=== PATIENT | male | born 1945 | race Caucasian/White ===

== ENCOUNTER → 2020-09-18 14:24 | Outpatient (CLI) | payer OTHER, SELFPAY ==
[2020-09-18 13:57] VITALS: BMI 28.7
[2020-09-18 16:06] LABS: BNP,B-Type NATRIURETIC PEPTIDE 759.9 pg/mL (0-100)
== END ==
PROVIDERS: PCP Internal Medicine; Referring Provider Internal Medicine; Visit Provider Internal Medicine
DX: R06.02 Shortness of breath (principal)
CPT/HCPCS: 36415; 83880

== ENCOUNTER → 2020-09-23 09:42 | Outpatient (CLI) | payer OTHER, MEDICARE, SELFPAY ==
[2020-09-18 13:57] VITALS: BMI 28.7
--- NOTE | 2020-09-23 09:48 | ECHOCS_ITS ---
Reason For Study: Dyspnea/SOB Procedure This was a 2D Doppler, Color Flow transthoracic echocardiogram. The study was technically difficult. Contrast injection was performed. Exam performed in department. Left Ventricle Normal LV size. Left ventricular systolic function is normal. The estimated ejection fraction is 55 %. Stage 3 diastolic dysfunction. No regional wall motion abnormalities noted. Right Ventricle Normal RV size. Normal systolic function. Atria The left atrium is mildly enlarged. Normal right atrium. Mitral Valve Normal mitral valve. Tricuspid Valve Normal tricuspid valve. Mild (1+) tricuspid valve insufficiency. Pulmonary artery systolic pressure is 40 mmHg. Aortic Valve Trisinus/trileaflet aortic valve. Pulmonic Valve Normal pulmonic valve. Great Vessels Normal aortic root. The pulmonary artery is normal size. Normal inferior vena cava. Pericardium/Pleural No pericardial effusion. Medication 22 gauge I.V. with prn adaptor inserted into right arm. Diluted definity 2ml given slow IV push to enhance endocardial definition. MMode/2D Measurements & Calculations LVIDd: 4.8 cm IVSd: 1.2 cm Ao root diam: 3.3 cm LVIDs: 2.8 cm LVPWd: 0.98 cm LA dimension: 4.3 cm FS: 41.9 % LAV(MOD-bp): 71.7 ml LA A4 area: 22.9 cm2 RA A4 area: 19.9 cm2 LAV(MOD-bp) Indexed: 33.6 ml/m2 LAV(MOD-sp2): 68.6 ml LAV(MOD-sp4): 74.6 ml Time Measurements MV dec time: 0.14 sec Doppler Measurements & Calculations MV E max justin: 130.9 cm/sec Lat Peak E' Justin: 13.5 cm/sec Med Peak E' Justin: 9.5 cm/sec MV A max justin: 30.4 cm/sec E/E' lat: 9.7 E/E' med: 13.8 MV E/A: 4.3 MV V2 max: 127.5 cm/sec MV P1/2t max justin: 126.8 cm/sec Ao V2 max: 95.3 cm/sec MV max P.5 mmHg MV P1/2t: 78.7 msec Ao max P.6 mmHg MV V2 mean: 56.9 cm/sec MV dec slope: 471.9 cm/sec2 MV mean P.8 mmHg MV V2 VTI: 31.2 cm MVA(P1/2t): 2.8 cm2 LV V1 max: 87.2 cm/sec PA V2 max: 85.4 cm/sec TR max justin: 297.5 cm/sec LV V1 max P.0 mmHg TR max P.4 mmHg Interpretation Summary Normal LV size. Left ventricular systolic function is normal. The estimated ejection fraction is 55 %. Stage 3 diastolic dysfunction. The left atrium is mildly enlarged. Mild (1+) tricuspid valve insufficiency. Contrast injection was performed. Ordering Physician: Emily Roman Referring Physician: Emily Roman Performed By: Richard Wing RCS
== END ==
PROVIDERS: PCP Internal Medicine; Referring Provider Internal Medicine; Visit Provider Internal Medicine
DX: R06.2 Wheezing (principal)
CPT/HCPCS: 93306; Q9957; A4216; C8929

== ENCOUNTER → 2020-10-02 14:43 | Outpatient (CLI) | payer OTHER, MEDICARE, SELFPAY ==
[2020-10-02 16:57] LABS: Absolute Lymphocyte Count 1.53 X10^3/uL (0.83-4.51); Absolute Neutrophil Count 4.2 X10^3/uL (2.0-7.7); Basophil# 0.04 X10^3/uL; Basophil% 0.6 % (0-1); Eosinophil# 0.14 X10^3/uL; Eosinophils% 2.1 % (0-5); Hematocrit 48.9 % (40-54); Hemoglobin 15.7 g/dL (13.0-16.5); Lymphocyte # 1.53 X10^3/ul (4.0); Lymphocyte % 23.2 % (19-41); Mean Corp Hgb Conc 32.1 g/dL (32-36); Mean Corpuscular Hgb 29.8 pg (27.0-32.0); Mean Corpuscular Volume 92.8 fL (80-94); Mean Platelet Vol. 10.8 fl (6.2-12.0); Monocyte# 0.62 X10^3/uL; Monocyte% 9.4 % (0-10); NRBC Flagged by Analyzer 0 % (0-5); Neutrophil # 4.22 X10^3/uL (2.7-7.7); Neutrophil % 63.9 % (47-70); Platelet Count 168 K/mm3 (150-450); RBC Distribution Width SD 44.1 fl (35.1-43.9); Red Blood Count 5.27 M/mm3 (4.6-6.2); White Blood Count 6.6 K/mm3 (4.4-11.0)
[2020-10-02 17:05] LABS: AST(SGOT) 22 U/L (15-37); Alanine Aminotransfer ALT/SGPT 32 U/L (16-61); Albumin, Serum 3.8 g/dL (3.2-5.0); Alkaline Phosphatase 54 U/L (45-117); Anion Gap 3 (5-15); BUN 42 mg/dL (7-18); BUN/Creat Ratio 26.1 RATIO (10-20); Calcium,Total 9.9 mg/dL (8.5-10.1); Chloride 103 mmol/L (98-107); Creatinine, Serum 1.61 mg/dL (0.70-1.30); EST Glomerular Filtration Rate 45 mL/min (>60); Est Glom Filt Rate - Afr Amer 54 mL/min (>60); Glucose 137 mg/dL (74-106); Protein, Total 7.8 g/dL (6.4-8.2); Sodium Level 139 mmol/L (136-145)
[2020-10-02 17:14] LABS: Microalbumin,Random Urine 90.9 mg/L (NO RANGE EST.)
[2020-10-02 17:23] LABS: Hemoglobin A1c 6.5 % (3.8-5.6)
== END ==
PROVIDERS: PCP Internal Medicine; Referring Provider Internal Medicine; Visit Provider Internal Medicine
DX: E11.9 Type 2 diabetes mellitus without complications (principal); I50.9 Heart failure, unspecified
CPT/HCPCS: 36415; 80053; 82043; 82570; 83036; 85025

== ENCOUNTER → 2020-10-30 08:10 | Outpatient (CLI) | payer MEDICARE, SELFPAY ==
[2020-10-23 08:59] VITALS: BMI 28.0
== END ==
PROVIDERS: PCP Internal Medicine; Referring Provider Internal Medicine Cardiovascular Disease; Visit Provider Internal Medicine Cardiovascular Disease
DX: I48.0 Paroxysmal atrial fibrillation (principal); R00.1 Bradycardia, unspecified
CPT/HCPCS: 93225; 93226

== ENCOUNTER 2020-12-19 13:39 | Outpatient (RCR) | payer MEDICARE, SELFPAY ==
[2020-12-17 15:55] VITALS: BMI 28.8
[2020-12-19] MEDS: COVID-19 VACC, MRNA(PFIZER)/PF 30 MCG/0.3 ML SYRINGE IM (09:01)
[2021-01-09] MEDS: COVID-19 VACC, MRNA(PFIZER)/PF 30 MCG/0.3 ML SYRINGE IM (08:45)
== END 2020-12-19 23:59 ==
LOC: IMMUN 13:39
PROVIDERS: PCP Internal Medicine; Visit Provider Family Medicine
DX: Z23 Encounter for immunization (principal)
CPT/HCPCS: 0001A; 0002A

== ENCOUNTER → 2021-02-19 08:58 | Outpatient (CLI) | payer MEDICARE, SELFPAY ==
[2021-02-19 08:25] VITALS: BMI 28.8
[2021-02-19 13:02] LABS: Anion Gap 4 (5-15); BUN 42 mg/dL (7-18); BUN/Creat Ratio 26.4 RATIO (10-20); Calcium,Total 9.2 mg/dL (8.5-10.1); Chloride 108 mmol/L (98-107); Creatinine, Serum 1.59 mg/dL (0.70-1.30); EST Glomerular Filtration Rate 45 mL/min (>60); Est Glom Filt Rate - Afr Amer 55 mL/min (>60); Glucose 150 mg/dL (74-106); Potassium 4.1 mmol/L (3.5-5.1); Sodium Level 142 mmol/L (136-145)
[2021-02-19 13:09] LABS: BNP,B-Type NATRIURETIC PEPTIDE 246.1 pg/mL (0-100)
--- NOTE | 2021-02-19 13:39 | RAD_ITS ---
INDICATION: Cough, Shortness of breath EXAMINATION/TECHNIQUE: X-RAY - XR Chest 2 Views COMPARISON: None. FINDINGS: The lungs are clear. Tortuous and calcified thoracic aorta. The heart is not enlarged. No pleural effusion or pneumothorax. No acute osseous abnormalities. RAD/Chest PA and Lateral IMPRESSION: No acute radiographic abnormalities. Electronically Signed: Dakota Paul MD at 20:24 EDT Tel , Service support ,
== END ==
PROVIDERS: PCP Internal Medicine; Referring Provider Internal Medicine; Visit Provider Internal Medicine
DX: R06.02 Shortness of breath (principal); R05 Cough; I11.0 Hypertensive heart disease with heart failure; I50.32 Chronic diastolic (congestive) heart failure
CPT/HCPCS: 36415; 71046; 80048; 83880

== ENCOUNTER → 2021-03-05 15:47 | Outpatient (CLI) | payer MEDICARE, SELFPAY ==
[2021-03-05 15:19] VITALS: BMI 28.8
[2021-03-05 18:05] LABS: Anion Gap 8 (5-15); BUN 60 mg/dL (7-18); BUN/Creat Ratio 31.4 RATIO (10-20); Calcium,Total 8.9 mg/dL (8.5-10.1); Chloride 97 mmol/L (98-107); Creatinine, Serum 1.91 mg/dL (0.70-1.30); EST Glomerular Filtration Rate 37 mL/min (>60); Est Glom Filt Rate - Afr Amer 44 mL/min (>60); Glucose 321 mg/dL (74-106); Potassium 4.5 mmol/L (3.5-5.1); Sodium Level 134 mmol/L (136-145)
== END ==
PROVIDERS: PCP Internal Medicine; Referring Provider Physician Assistant; Visit Provider Physician Assistant
DX: I10 Essential (primary) hypertension (principal)
CPT/HCPCS: 36415; 80048

== ENCOUNTER → 2021-04-15 14:37 | Outpatient (CLI) | payer MEDICARE, SELFPAY ==
[2021-03-05 15:19] VITALS: BMI 28.8
[2021-04-15 15:47] LABS: Anion Gap 8 (5-15); BUN 45 mg/dL (7-18); BUN/Creat Ratio 21.1 RATIO (10-20); Chloride 102 mmol/L (98-107); Creatinine, Serum 2.13 mg/dL (0.70-1.30); EST Glomerular Filtration Rate 32 mL/min (>60); Est Glom Filt Rate - Afr Amer 39 mL/min (>60); Glucose 189 mg/dL (74-106); Potassium 4.1 mmol/L (3.5-5.1); Sodium Level 140 mmol/L (136-145)
== END ==
PROVIDERS: PCP Internal Medicine; Referring Provider Internal Medicine Cardiovascular Disease; Visit Provider Internal Medicine Cardiovascular Disease
DX: E11.9 Type 2 diabetes mellitus without complications (principal); I27.21 Secondary pulmonary arterial hypertension; I50.32 Chronic diastolic (congestive) heart failure; I51.9 Heart disease, unspecified; N28.9 Disorder of kidney and ureter, unspecified; R06.02 Shortness of breath
CPT/HCPCS: 36415; 80048

== ENCOUNTER → 2021-05-16 07:32 | Outpatient (CLI) | payer MEDICARE, SELFPAY ==
[2021-05-02 13:49] VITALS: BMI 28.0
[2021-05-16 08:15] LABS: Anion Gap 5 (5-15); BUN 31 mg/dL (7-18); BUN/Creat Ratio 20.9 RATIO (10-20); Calcium,Total 9.3 mg/dL (8.5-10.1); Chloride 109 mmol/L (98-107); Creatinine, Serum 1.48 mg/dL (0.70-1.30); EST Glomerular Filtration Rate 49 mL/min (>60); Est Glom Filt Rate - Afr Amer 59 mL/min (>60); Glucose 151 mg/dL (74-106); Sodium Level 141 mmol/L (136-145)
== END ==
PROVIDERS: PCP Internal Medicine; Referring Provider Physician Assistant Medical; Visit Provider Physician Assistant Medical
DX: I11.0 Hypertensive heart disease with heart failure (principal); I50.32 Chronic diastolic (congestive) heart failure; I48.0 Paroxysmal atrial fibrillation; E78.5 Hyperlipidemia, unspecified
CPT/HCPCS: 36415; 80048

== ENCOUNTER → 2021-10-03 15:04 | Outpatient (CLI) | payer MEDICARE, SELFPAY ==
--- NOTE | 2021-10-03 15:23 | RAD_ITS ---
STUDY: XR Chest 2 Views 10/03/2021 3:34 PM REASON FOR EXAM: Male, 75 years old. Technologist Notes Cough for a few days, chest congestion, shortness of breath. History of congestive heart failure. cough, sob, CHF COMPARISON: 02/19/2021 TECHNIQUE: XR Chest 2 Views FINDINGS: There is no demonstrated pleural abnormality. There are flowing osteophytes of the thoracic spine which can be seen in DISH. Enlarged heart size. Normal mediastinum. Normal adelina. Prominent appearing increased interstitial lung markings. Normal visualized pulmonary arteries. There is atherosclerotic calcification of the aortic arch with tortuosity. There are diffuse degenerative changes of the visualized thoracic spine. There is degenerative osteoarthritis of the bilateral shoulders. There is no demonstrated abnormality of the visualized soft tissue structures of the upper abdomen. RAD/Chest PA and Lateral IMPRESSION: There are no acute findings. Electronically Signed: Stanislav Gomez MD at 16:26 EST , Service support ,
[2021-10-03 16:33] LABS: BNP,B-Type NATRIURETIC PEPTIDE 280.8 pg/mL (0-100)
[2021-10-03 16:35] LABS: Anion Gap 5 (5-15); BUN 34 mg/dL (7-18); BUN/Creat Ratio 21.7 RATIO (10-20); Calcium,Total 9.4 mg/dL (8.5-10.1); Chloride 104 mmol/L (98-107); Creatinine, Serum 1.57 mg/dL (0.70-1.30); EST Glomerular Filtration Rate 46 mL/min (>60); Est Glom Filt Rate - Afr Amer 55 mL/min (>60); Glucose 115 mg/dL (74-106); Sodium Level 139 mmol/L (136-145)
== END ==
PROVIDERS: PCP Internal Medicine; Referring Provider Physician Assistant; Visit Provider Physician Assistant
DX: R06.02 Shortness of breath (principal); R05.9 Cough, unspecified; R60.9 Edema, unspecified; I50.32 Chronic diastolic (congestive) heart failure
CPT/HCPCS: 36415; 71046; 80048; 83880

== ENCOUNTER 2021-10-20 13:03 | Outpatient (CLI) | payer MEDICARE, SELFPAY ==
[2021-10-20 15:06] LABS: Absolute Lymphocyte Count 1.82 X10^3/uL (0.83-4.51); Absolute Neutrophil Count 4.9 X10^3/uL (2.0-7.7); Basophil# 0.06 X10^3/uL; Basophil% 0.8 % (0-1); Eosinophil# 0.27 X10^3/uL; Eosinophils% 3.5 % (0-5); Hematocrit 43.9 % (40-54); Hemoglobin 14.2 g/dL (13.0-16.5); Lymphocyte # 1.82 X10^3/ul (0.83-4.51); Lymphocyte % 23.7 % (19-41); Mean Corp Hgb Conc 32.3 g/dL (32-36); Mean Corpuscular Hgb 29.9 pg (27.0-32.0); Mean Corpuscular Volume 92.4 fL (80-94); Mean Platelet Vol. 10.6 fl (6.2-12.0); Monocyte# 0.55 X10^3/uL; Monocyte% 7.2 % (0-10); NRBC Flagged by Analyzer 0 % (0-5); Neutrophil # 4.91 X10^3/uL (2.7-7.7); Platelet Count 178 K/mm3 (150-450); RBC Distribution Width CV 13.2 % (11.6-14.6); RBC Distribution Width SD 45.1 fl (35.1-43.9); Red Blood Count 4.75 M/mm3 (4.6-6.2); White Blood Count 7.7 K/mm3 (4.4-11.0)
[2021-10-20 15:21] LABS: ALB/GLOB Ratio 0.8 RATIO (0.9-2.4); AST(SGOT) 16 U/L (15-37); Alanine Aminotransfer ALT/SGPT 22 U/L (16-61); Albumin, Serum 3.4 g/dL (3.2-5.0); Alkaline Phosphatase 46 U/L (45-117); Anion Gap 4 (5-15); BUN 37 mg/dL (7-18); Calcium,Total 9.2 mg/dL (8.5-10.1); Chloride 105 mmol/L (98-107); Cholesterol 137 mg/dL (200); Creatinine, Serum 1.68 mg/dL (0.70-1.30); EST Glomerular Filtration Rate 42 mL/min (>60); Est Glom Filt Rate - Afr Amer 51 mL/min (>60); Globulin 4.3 g/dL (2.2-4.2); Glucose 160 mg/dL (74-106); High Density Lipoprotein 44 mg/dL; PSA,Total- Diagnostic 3.62 ng/mL (0.0-4.0); Potassium 4.5 mmol/L (3.5-5.1); Protein, Total 7.7 g/dL (6.4-8.2); Sodium Level 140 mmol/L (136-145); Triglycerides 99 mg/dL; Very Low Density Lipoprotein 20 mg/dL (5-40)
== END 2021-10-20 23:59 | disposition home or self-care (01) ==
LOC: BIMLAB 13:04
PROVIDERS: PCP Internal Medicine; Referring Provider Physician Assistant; Visit Provider Physician Assistant
DX: I10 Essential (primary) hypertension (principal); E78.5 Hyperlipidemia, unspecified; N40.0 Benign prostatic hyperplasia without lower urinary tract symptoms
CPT/HCPCS: 36415; 80053; 80061; 84153; 85025

== ENCOUNTER → 2022-03-18 | Outpatient (CLI) | payer MEDICARE, SELFPAY ==
[2022-03-18 15:31] LABS: Anion Gap 5 (5-15); BUN 37 mg/dL (7-18); BUN/Creat Ratio 18.8 RATIO (10-20); Calcium,Total 9.4 mg/dL (8.5-10.1); Chloride 106 mmol/L (98-107); Creatinine, Serum 1.97 mg/dL (0.70-1.30); EST Glomerular Filtration Rate 35 mL/min (>60); Est Glom Filt Rate - Afr Amer 43 mL/min (>60); Glucose 171 mg/dL (74-106); Potassium 3.7 mmol/L (3.5-5.1); Sodium Level 145 mmol/L (136-145)
[2022-03-18 15:43] LABS: Hemoglobin A1c 6.8 % (3.8-5.6)
== END | disposition home or self-care (01) ==
LOC: BIMLAB 14:32
PROVIDERS: PCP Internal Medicine; Visit Provider Internal Medicine
DX: I10 Essential (primary) hypertension (principal); E11.69 Type 2 diabetes mellitus with other specified complication
CPT/HCPCS: 36415; 80048; 83036

== ENCOUNTER → 2022-04-24 | Outpatient (CLI) | payer MEDICARE, SELFPAY ==
[2022-04-24 12:01] LABS: Anion Gap 1 (5-15); BUN 30 mg/dL (7-18); BUN/Creat Ratio 18.6 RATIO (10-20); Calcium,Total 9.6 mg/dL (8.5-10.1); Chloride 107 mmol/L (98-107); Creatinine, Serum 1.61 mg/dL (0.70-1.30); EST Glomerular Filtration Rate 44 mL/min (>60); Est Glom Filt Rate - Afr Amer 54 mL/min (>60); Glucose 163 mg/dL (74-106); Potassium 4.7 mmol/L (3.5-5.1); Sodium Level 139 mmol/L (136-145)
== END | disposition home or self-care (01) ==
LOC: BIMLAB 10:52
PROVIDERS: PCP Internal Medicine; Referring Provider Internal Medicine; Visit Provider Internal Medicine
DX: N18.30 Chronic kidney disease, stage 3 unspecified (principal)
CPT/HCPCS: 36415; 80048

== ENCOUNTER → 2022-09-28 | Outpatient (CLI) | payer MEDICARE, SELFPAY ==
[2022-09-28 15:08] LABS: Absolute Lymphocyte Count 1.46 X10^3/uL (0.83-4.51); Absolute Neutrophil Count 3.8 X10^3/uL (2.0-7.7); Basophil# 0.08 X10^3/uL; Basophil% 1.3 % (0-1); Eosinophil# 0.12 X10^3/uL; Hematocrit 41.8 % (40-54); Hemoglobin 13.5 g/dL (13.0-16.5); Lymphocyte # 1.46 X10^3/ul (0.83-4.51); Lymphocyte % 24.5 % (19-41); Mean Corp Hgb Conc 32.3 g/dL (32-36); Mean Corpuscular Hgb 30.4 pg (27.0-32.0); Mean Corpuscular Volume 94.1 fL (80-94); Mean Platelet Vol. 10.7 fl (6.2-12.0); Monocyte# 0.47 X10^3/uL; Monocyte% 7.9 % (0-10); NRBC Flagged by Analyzer 0 % (0-5); Neutrophil # 3.79 X10^3/uL (2.7-7.7); Neutrophil % 63.6 % (47-70); Platelet Count 164 K/mm3 (150-450); RBC Distribution Width CV 13.6 % (11.6-14.6); RBC Distribution Width SD 46.8 fl (35.1-43.9); Red Blood Count 4.44 M/mm3 (4.6-6.2)
[2022-09-28 15:21] LABS: ALB/GLOB Ratio 0.9 RATIO (0.9-2.4); AST(SGOT) 15 U/L (15-37); Alanine Aminotransfer ALT/SGPT 22 U/L (16-61); Albumin, Serum 3.5 g/dL (3.2-5.0); Alkaline Phosphatase 46 U/L (45-117); Anion Gap 4 (5-15); BUN 38 mg/dL (7-18); BUN/Creat Ratio 20.2 RATIO (10-20); Calcium,Total 9.5 mg/dL (8.5-10.1); Chloride 106 mmol/L (98-107); Cholesterol 130 mg/dL (200); Creatinine, Serum 1.88 mg/dL (0.70-1.30); EST Glomerular Filtration Rate 37 mL/min (>60); Est Glom Filt Rate - Afr Amer 45 mL/min (>60); Globulin 3.9 g/dL (2.2-4.2); Glucose 118 mg/dL (74-106); High Density Lipoprotein 39 mg/dL; PSA,Total - Annual Screen 2.03 ng/mL (0.00-4.00); Potassium 4.5 mmol/L (3.5-5.1); Protein, Total 7.4 g/dL (6.4-8.2); Sodium Level 141 mmol/L (136-145); Triglycerides 117 mg/dL; Very Low Density Lipoprotein 23 mg/dL (5-40)
[2022-09-28 15:26] LABS: Hemoglobin A1c 6.5 % (3.8-5.6)
== END | disposition home or self-care (01) ==
LOC: BIMLAB 13:36
PROVIDERS: PCP Internal Medicine; Referring Provider Internal Medicine; Visit Provider Internal Medicine
DX: E11.69 Type 2 diabetes mellitus with other specified complication (principal); R06.02 Shortness of breath; I10 Essential (primary) hypertension; N40.0 Benign prostatic hyperplasia without lower urinary tract symptoms
CPT/HCPCS: 36415; 80053; 80061; 83036; 84153; 85025; G0103

== ENCOUNTER → 2023-03-16 | Outpatient (CLI) | payer MEDICARE, SELFPAY ==
[2023-03-16 17:07] LABS: Anion Gap 7 (5-15); BUN 41 mg/dL (7-18); Calcium,Total 9.4 mg/dL (8.5-10.1); Chloride 107 mmol/L (98-107); Creatinine, Serum 1.95 mg/dL (0.70-1.30); EST Glomerular Filtration Rate 35 mL/min (>60); Est Glom Filt Rate - Afr Amer 43 mL/min (>60); Glucose 93 mg/dL (74-106); Potassium 4.3 mmol/L (3.5-5.1); Sodium Level 141 mmol/L (136-145)
[2023-03-16 17:18] LABS: Hemoglobin A1c 6.8 % (3.8-5.6)
[2023-03-16 17:19] LABS: Microalbumin:Creatinine Ratio 108.8 mg/g CRE (<30 mg/g CRE)
== END | disposition home or self-care (01) ==
LOC: BIMLAB 14:42
PROVIDERS: PCP Internal Medicine; Referring Provider Internal Medicine; Visit Provider Internal Medicine
DX: E11.69 Type 2 diabetes mellitus with other specified complication (principal)
CPT/HCPCS: 36415; 80048; 82043; 82570; 83036

== ENCOUNTER → 2023-09-20 | Outpatient (CLI) | payer MEDICARE, SELFPAY ==
[2023-09-20 15:46] LABS: Absolute Lymphocyte Count 1.61 X10^3/uL (0.83-4.51); Basophil# 0.07 X10^3/uL; Basophil% 1.1 % (0-1); Eosinophil# 0.12 X10^3/uL; Eosinophils% 1.9 % (0-5); Hematocrit 41.7 % (40-54); Hemoglobin 12.8 g/dL (13.0-16.5); Lymphocyte # 1.61 X10^3/ul (0.83-4.51); Mean Corp Hgb Conc 30.7 g/dL (32-36); Mean Corpuscular Hgb 28.9 pg (27.0-32.0); Mean Corpuscular Volume 94.1 fL (80-94); Mean Platelet Vol. 10.6 fl (6.2-12.0); Monocyte# 0.63 X10^3/uL; Monocyte% 9.8 % (0-10); NRBC Flagged by Analyzer 0 % (0-5); Neutrophil # 3.97 X10^3/uL (2.7-7.7); Neutrophil % 61.7 % (47-70); Platelet Count 189 K/mm3 (150-450); RBC Distribution Width CV 13.9 % (11.6-14.6); RBC Distribution Width SD 48.3 fl (35.1-43.9); Red Blood Count 4.43 M/mm3 (4.6-6.2); White Blood Count 6.4 K/mm3 (4.4-11.0)
[2023-09-20 16:47] LABS: ALB/GLOB Ratio 0.9 RATIO (0.9-2.4); AST(SGOT) 20 U/L (15-37); Alanine Aminotransfer ALT/SGPT 19 U/L (16-61); Albumin, Serum 3.6 g/dL (3.2-5.0); Alkaline Phosphatase 52 U/L (45-117); Anion Gap 8 (5-15); BUN 51 mg/dL (7-18); BUN/Creat Ratio 26.3 RATIO (10-20); Calcium,Total 8.7 mg/dL (8.5-10.1); Chloride 107 mmol/L (98-107); Cholesterol 122 mg/dL (200); Creatinine, Serum 1.94 mg/dL (0.70-1.30); EST Glomerular Filtration Rate 36 mL/min (>60); Est Glom Filt Rate - Afr Amer 43 mL/min (>60); Globulin 4.2 g/dL (2.2-4.2); Glucose 124 mg/dL (74-106); High Density Lipoprotein 49 mg/dL; PSA,Total- Diagnostic 2.99 ng/mL (0.0-4.0); Potassium 4.1 mmol/L (3.5-5.1); Protein, Total 7.8 g/dL (6.4-8.2); Sodium Level 141 mmol/L (136-145); Triglycerides 55 mg/dL; Very Low Density Lipoprotein 11 mg/dL (5-40)
== END | disposition home or self-care (01) ==
LOC: BIMLAB 14:22
PROVIDERS: PCP Internal Medicine; Referring Provider Internal Medicine; Visit Provider Internal Medicine
DX: R06.02 Shortness of breath (principal); E11.69 Type 2 diabetes mellitus with other specified complication; N40.0 Benign prostatic hyperplasia without lower urinary tract symptoms
CPT/HCPCS: 36415; 80053; 80061; 84153; 85025

== ENCOUNTER → 2024-03-20 | Outpatient (CLI) | payer MEDICARE, SELFPAY | END | disposition home or self-care (01) | PROVIDERS: PCP Internal Medicine; Referring Provider Nurse Practitioner Gerontology; Visit Provider Nurse Practitioner Gerontology | DX: I48.0 Paroxysmal atrial fibrillation (principal); I50.32 Chronic diastolic (congestive) heart failure | CPT/HCPCS: 93225; 93226 ==

== ENCOUNTER → 2024-03-27 | Outpatient (CLI) | payer MEDICARE, SELFPAY ==
--- NOTE | 2024-03-27 14:44 | RAD_ITS ---
STUDY: X-RAY CHEST REASON FOR EXAM: Male, 78 years old. For Micra VR implant. TECHNIQUE: Frontal and lateral views of the chest. COMPARISON: October 03, 2021 FINDINGS: Stable mild hyperinflation. Mild diffuse interstitial prominence in the bases, unchanged. There is no demonstrated pleural abnormality. Stable cardiomegaly. Normal mediastinum and adelina. Normal visualized pulmonary arteries. Aortic tortuosity with calcification unchanged. Thoracic osteopenia with mild diffuse spondylosis, unchanged. Mild arthrosis of both glenohumeral joints, unaltered. Is no abnormality of the visualized soft tissue structures of the upper abdomen. RAD/Chest PA and Lateral IMPRESSION: Stable chest with no acute or active cardiopulmonary disease. Electronically Signed: Ritesh Hirsch MD at 9:56 EDT ,
[2024-03-27 15:10] LABS: Bacteria 0 SEEN /hpf (None Seen); Mucous, Urine 0 SEEN /hpf (<or=2+); Red Blood Cells-Urine 0 SEEN /hpf (0-5); Squamous Epithelial Cells - UA 0 SEEN /hpf (0-5); White Blood Cells 0 SEEN /hpf (0-5)
[2024-03-27 15:54] LABS: Color, Urine Yellow (Yellow); Glucose, Dipstick Normal (Normal); Hematocrit 42.5 % (40-54); Hemoglobin 13.3 g/dL (13.0-16.5); Ketone-Dipstick Negative (Negative); Leukocyte Esterase-Dipstick Negative /ul (Negative); Mean Corp Hgb Conc 31.3 g/dL (32-36); Mean Corpuscular Hgb 29.8 pg (27.0-32.0); Mean Corpuscular Volume 95.1 fL (80-94); Mean Platelet Vol. 10.8 fl (6.2-12.0); Nitrite-Dipstick Negative (Negative); Occult Blood-Urine Negative /ul (Negative); Platelet Count 129 K/mm3 (150-450); Protein-Dipstick Negative (Negative); RBC Distribution Width CV 14.4 % (11.6-14.6); RBC Distribution Width SD 50.5 fl (35.1-43.9); Red Blood Count 4.47 M/mm3 (4.6-6.2); Urine Bilirubin Dipstick Negative (Negative); Urine Clarity Clear (Clear); Urine Urobilinogen Normal (Normal); White Blood Count 5.5 K/mm3 (4.4-11.0)
[2024-03-27 16:02] LABS: Anion Gap 5 (5-15); BUN 40 mg/dL (7-18); BUN/Creat Ratio 21.3 RATIO (10-20); Calcium,Total 9.9 mg/dL (8.5-10.1); Chloride 107 mmol/L (98-107); Creatinine, Serum 1.88 mg/dL (0.70-1.30); EST Glomerular Filtration Rate 37 mL/min (>60); Est Glom Filt Rate - Afr Amer 45 mL/min (>60); Glucose 130 mg/dL (74-106); Potassium 4.2 mmol/L (3.5-5.1); Sodium Level 141 mmol/L (136-145)
[2024-03-27 16:26] LABS: International Normalized Ratio 1.3; Prothrombin Time (Protime)PT. 16.3 SECONDS (11.7-14.9)
== END | disposition home or self-care (01) ==
PROVIDERS: PCP Internal Medicine; Referring Provider Internal Medicine Cardiovascular Disease; Visit Provider Internal Medicine Cardiovascular Disease
DX: I49.8 Other specified cardiac arrhythmias (principal); I44.2 Atrioventricular block, complete; I48.92 Unspecified atrial flutter
CPT/HCPCS: 71046; 80048; 81001; 85027; 85610

== ENCOUNTER 2024-04-03 14:11 | Observation (INO) | payer MEDICARE, SELFPAY ==
[2024-04-03] VITALS (7 sets, daily range): BP systolic 135–151; BP diastolic 65–79; PULSE 60–65; RESP 14–16; TEMP 36.6–37.1; O2SAT 94–97; BMI 28.0
--- NOTE | 2024-04-03 13:56 | CL.IE_ITS ---
Patient: LG ARIZMENDI Study Date: 04/03/2024 Performing: Josr Richardson MD : 1945 Age: 78 Gender: male PROCEDURES PERFORMED [id number])INITIAL PACER INSERT+VENTRICULAR LEAD INDICATIONS Atrial fibrillation and complete heart block PROCEDURE DETAILS The patient was brought to the Catheterization Lab in the postabsorptive nonsedated state. Informed consent was obtained prior to the procedure. Local anesthetic was given subcutaneously to the left upper chest area with Lidocaine 2%. Access was achieved and a guidewire was advanced into the left subclavian vein. Incision was made to the left subclavicular area. A peel-away sheath was inserted into the left subclavian vein. PPM ventricular lead was inserted / positioned to right ventricular apex. PPM ventricular lead testing performed. PPM ventricular lead testing performed. The Ventricular PM lead sutured in place with 2-0 Silk. Device pocket was irrigated with antibiotic, Ancef 1gm.. PPM generator was attached to the lead(s) and inserted into the pocket. PPM generator was then interrogated by the programmer or analyst. Subcutaneous closure was completed with 3-0 Vicryl. Skin closure was completed with 4-0 Vicryl. Steri-strips applied to Lt chest area. The patient tolerated the procedure well. Estimated Blood Loss: 10 ml's IMPLANTED / EX-PLANTED DEVICES IMPLANTED DEVICE(S): PPM Generator - Cinder Crew Worker: [employer]rak[employer], Model # [id number] , Serial # [id number] PPM Ventricular lead - Cinder Crew Worker: [employer]rakash, Model # [id number] , Serial # [id number] DEVICE PARAMETERS VENTRICULAR LEAD PARAMETERS: R wave- 4.8 (mV) threshold- 0.75 (V) impedence- 630 (OHMS) DEVICE PARAMETERS: Mode- VVIR Lower rate- 60 Upper rate- 130 CONCLUSIONS / RECOMMENDATIONS Device Conclusions: Successful implantation of a single chamber pacemaker Device Recommendations: Follow up with Primary Care Physician PROCEDURE MEDICATIONS Fentanyl 50 mcg IV Versed 1 mg IV Versed 1 mg IV Oxygen: 2 L/min via nasal cannula Ancef 2 Gm IV @ 04/03/2024 12:58:50 Signed By Josr Richardson MD On 04/03/2024 13:55:31 Josr Richardson MD
[2024-04-03] MEDS: Furosemide 40 MG Tablet PO (18:26)
[2024-04-03] MEDS: Tamsulosin HCl 0.4 MG Capsule PO (18:26)
[2024-04-03] MEDS: Acetaminophen 325 MG Tablet PO (23:21)
[2024-04-04 02:00] VITALS: BP 148/70; PULSE 60; RESP 18; TEMP 36.6; O2SAT 95
--- NOTE | 2024-04-04 05:55 | RAD_ITS ---
INDICATION: Post permanant ICD/Pacemaker -- inspiration/expiration. Arms Down. Wet read to MD EXAMINATION/TECHNIQUE: X-RAY - XR Chest 3 Views COMPARISON: No relevant prior comparison study available FINDINGS: LINES/DEVICES: Pacemaker is seen on the left side. LUNGS: No consolidation, edema or effusion. No pneumothorax. MEDIASTINUM AND CARDIOVASCULAR STRUCTURES: Moderate cardiomegaly. BONES AND SOFT TISSUES: Unremarkable. RAD/Chest 3 View IMPRESSION: Moderate cardiomegaly. Electronically Signed: Sam Diamond MD at 5:51 EDT ,
[2024-04-04 08:23] VITALS: BP 135/69; PULSE 60; RESP 14; TEMP 36.6; O2SAT 96
--- NOTE | 2024-04-04 08:53 | PN.CARD_ITS ---
Subjective Subjective Patient seen and evaluated. Objective Data Vital Signs: Vital Signs Temp Pulse Resp BP Pulse Ox O2 Del Method 98 F 60 14 135/69 H 96 Room Air 04/04/24 08:23 04/04/24 08:23 04/04/24 08:23 04/04/24 08:23 04/04/24 08:23 04/04/24 08:29 Oxygen Delivery Method Room Air Weight: 201 lb Body Mass Index (BMI) 28.0 Intake & Output: Intake and Output for Last 24 Hours 04/02/24 04/03/24 04/04/24 23:59 23:59 23:59 Intake Total 520 / 920 520 / 520 Output Total 400 / 1150 1450 / 1450 Balance 120 / -230 -930 / -930 Cardiology Labs/Tests Rhythm: EKG: ECHO: Stress Test: Cardiac Cath: PCI: CT Surgery: Holter monitor: EPS: PPM: CXR: Chest CT Scan: Radiography Diagnostic Testing: Radiology Impression Chest X-Ray 04/04/24 05:55 IMPRESSION: Moderate cardiomegaly. Electronically Signed: Sam Diamond MD at 5:51 EDT , Physical Exam Const alert, oriented x3 and no apparent distress General Appearance: cooperative HEENT hearing grossly normal bilaterally Head and Scalp: atraumatic Eyes EOMs intact bilaterally Neck General: normal visual inspection Chest inspection of chest normal and palpation of chest normal Resp normal respiratory effort Auscultation: clear to auscultation bilaterally Cardio regular rate, regular rhythm, S1 normal heart sound and S2 normal heart sound Jugular Venous Distention: JVD GI normal to inspection, nondistended, normoactive bowel sounds Extremity normal capillary refill and no pedal edema Peripheral Pulses: Yes pulses 2+ throughout and femoral pulses present Skin no rashes or lesions noted Neuro oriented x3 and CN's II-XII intact bilaterally Psych Appearance: grossly normal and appropriate Assessment & Plan Assessment/Plan (1) Intermittent complete heart block: PLAN: He presented with heart block and underlying atrial fibrillation and underwent permanent pacemaker implantation yesterday. Pacemaker interrogation was noted to be normal and chest x-ray is unremarkable. [facility].
--- NOTE | 2024-04-04 08:55 | DCINST_ITS ---
Discharge Instructions Diet Discharge Diet: No restrictions (as you feel able. No excessive stretching. No lifting your arm over your head (keep elbow below shoulder level) until seen for your pacemaker check. Do not lift your elbow away from your side until you are seen for your first visit. Keep the arm sling on if it helps remind you not to lift your arm.) Activity Discharge Activity: May Not Drive May shower in (days): 2 Additional Activity Instructions:: May shower or bathe on [day 3]. Do not scrub the incision or soak in the tub. Just wash with soap and let the water run over the incision. Gently pat dry with towel. Medications: Take your pain medication as directed. Refer to your discharge instruction sheet for a list of medications you are to take. Dressing / Incision Call your doctor if your incision/area has: Continuous Slow Oozing, Sudden Increased Bleeding, Increased Pain/ Swelling, Increased Redness, Foul Smelling Discharge and Swelling at the incision site Call your doctor if you observe: Fever of 101 or Higher, Shortness of breath, Dizziness, Fainting spells, Swelling in the ankles, Chest pain, Prolonged hiccupping and Increased palpitations (irregular heartbeat) Suture Line Care: Avoid Pulling/Pushing and Avoid Pinching/Bending Cleanse incision/area with: Do not get Incision Wet and Keep Dressing Clean & Dry Additional Dressing/Incision Instructions:: When dressing is removed, wash and dry incision. Keep covered with a light bandage if it is rubbing against your clothing. Do not cover the incision with an airtight bandage. Change the bandage daily. Do not remove steri strips. The strips will fall off on their own. Follow Up Care Please Follow Up With: Josr Richardson MD When: Pacemaker follow-up April 11 at 1 PM with the pacemaker clinic. Test Results: Test results from this visit will be discussed in further detail at your follow- up appointment, if applicable. Discharge Plan Admission Admit Date/Time: 04/03/24 14:11 Attending Provider: Josr Richardson Primary Care Provider: Emily Roman Discharge Orders/Prescriptions Prescriptions: No Action (DME) FreeStyle Hemant 2 [place] Misc See Rx Instructions .Route Qty: 1 2RF Rx Instructions: As directed (DME) FreeStyle Hemant 2 Sensor Kit See Rx Instructions .Route Qty: 1 3RF Rx Instructions: As directed albuterol sulfate 90 mcg/actuation HFA aerosol inhaler 2 puff inhalation Q6H PRN PRN (Reason: for wheezing) Qty: 18 3RF Januvia 100 mg tablet 100 mg PO DAILY Qty: 90 3RF amlodipine 5 mg tablet 5 mg PO DAILY Qty: 90 3RF fenofibrate 160 mg tablet See Rx Instructions .ROUTE .COMPLEX Qty: 90 3RF Dose Instruction: TAKE 1 TABLET BY MOUTH EVERY DAY Rx Instructions: TAKE 1 TABLET BY MOUTH EVERY DAY furosemide 40 mg tablet 40 mg PO BID Qty: 180 3RF losartan 100 mg tablet 100 mg PO DAILY Qty: 90 3RF tamsulosin 0.4 mg capsule 0.4 mg PO DAILY Qty: 90 3RF Referrals / Follow Up: Emily Roman MD [Primary Care Provider] - Disposition Disposition (needs filled in before D/C Order can be placed): Home, Self Care
--- NOTE | 2024-04-04 09:46 | CASEMGMT ---
Patient has order for discharge. RN CM in to discuss needs at discharge. Patient denies needs or help at discharge, lives with . Patient had no further questions or concerns.
--- NOTE | 2024-04-04 10:43 | PHA.DC_ITS ---
Pharmacy [place] Med Reconciliation Pharmacy Service has performed discharge medication reconciliation for this patient. The patient's discharge medication list was reviewed for discrepancies and discrepancies were resolved. Medications at Discharge Home Medications sitagliptin phosphate 100 mg tablet (Januvia) 100 mg PO DAILY diabetes/heart #90 tabs 05/26/22 amlodipine 5 mg tablet 5 mg PO DAILY blood pressure #90 tabs 06/01/23 fenofibrate 160 mg tablet See Rx Instructions .Route .COMPLEX cholesterol #90 tabs 06/01/23 furosemide 40 mg tablet 40 mg PO BID diuretic #180 tabs 06/01/23 losartan 100 mg tablet 100 mg PO DAILY blood pressure #90 tabs 06/01/23 tamsulosin 0.4 mg capsule 0.4 mg PO DAILY prostate #90 caps 06/01/23 albuterol sulfate 90 mcg/actuation aerosol inhaler 2 puff inhalation Q6H PRN PRN for wheezing #18 ea 01/26/24 flash glucose scanning reader (FreeStyle Hemant 2 [place]) #1 ea 01/26/24 flash glucose sensor (FreeStyle Hemant 2 Sensor kit) #1 ea 01/26/24
== END 2024-04-04 08:55 | disposition home or self-care (01) ==
LOC: PCU 14:20
PROVIDERS: Admitting Provider Internal Medicine Cardiovascular Disease; PCP Internal Medicine; Referring Provider Internal Medicine Cardiovascular Disease; Visit Provider Internal Medicine Cardiovascular Disease
DX: Z45.018 Encounter for adjustment and management of other part of cardiac pacemaker (principal); I13.0 Hypertensive heart and chronic kidney disease with heart failure and stage 1 through stage 4 chronic kidney disease, or unspecified chronic kidney disease; I50.32 Chronic diastolic (congestive) heart failure; I48.0 Paroxysmal atrial fibrillation; I44.2 Atrioventricular block, complete; E11.22 Type 2 diabetes mellitus with diabetic chronic kidney disease; N18.30 Chronic kidney disease, stage 3 unspecified; E78.5 Hyperlipidemia, unspecified; Z79.899 Other long term (current) drug therapy; Z87.891 Personal history of nicotine dependence; I49.8 Other specified cardiac arrhythmias
CPT/HCPCS: 33207; 71047; 99152; 99153; 99221; J7040; J7050; C1894; G0378

== ENCOUNTER → 2024-08-01 | Outpatient (CLI) | payer MEDICARE, SELFPAY ==
[2024-08-01 15:33] LABS: Absolute Lymphocyte Count 1.34 X10^3/uL (0.83-4.51); Absolute Neutrophil Count 3.9 X10^3/uL (2.0-7.7); Basophil# 0.04 X10^3/uL; Basophil% 0.7 % (0-1); Eosinophil# 0.21 X10^3/uL; Eosinophils% 3.4 % (0-5); Hematocrit 41.8 % (40-54); Hemoglobin 13.4 g/dL (13.0-16.5); Lymphocyte # 1.34 X10^3/ul (0.83-4.51); Lymphocyte % 21.8 % (19-41); Mean Corp Hgb Conc 32.1 g/dL (32-36); Mean Corpuscular Hgb 30.5 pg (27.0-32.0); Mean Platelet Vol. 10.2 fl (6.2-12.0); Monocyte% 9.8 % (0-10); NRBC Flagged by Analyzer 0 % (0-5); Neutrophil # 3.93 X10^3/uL (2.7-7.7); Neutrophil % 63.8 % (47-70); Platelet Count 161 K/mm3 (150-450); RBC Distribution Width CV 13.8 % (11.6-14.6); RBC Distribution Width SD 48.3 fl (35.1-43.9); White Blood Count 6.2 K/mm3 (4.4-11.0)
[2024-08-01 16:00] LABS: Hemoglobin A1c 6.4 % (3.8-5.6)
[2024-08-01 16:05] LABS: ALB/GLOB Ratio 0.8 RATIO (0.9-2.4); AST(SGOT) 16 U/L (15-37); Alanine Aminotransfer ALT/SGPT 17 U/L (16-61); Albumin, Serum 3.4 g/dL (3.2-5.0); Alkaline Phosphatase 54 U/L (45-117); Anion Gap 6 (5-15); BUN 38 mg/dL (7-18); BUN/Creat Ratio 23.3 RATIO (10-20); Calcium,Total 9.5 mg/dL (8.5-10.1); Chloride 107 mmol/L (98-107); Cholesterol 143 mg/dL (200); Creatinine, Serum 1.63 mg/dL (0.70-1.30); EST Glomerular Filtration Rate 43 mL/min (>60); Est Glom Filt Rate - Afr Amer 53 mL/min (>60); Glucose 143 mg/dL (74-106); High Density Lipoprotein 50 mg/dL; Potassium 4.3 mmol/L (3.5-5.1); Protein, Total 7.4 g/dL (6.4-8.2); Sodium Level 139 mmol/L (136-145); Triglycerides 65 mg/dL; Very Low Density Lipoprotein 13 mg/dL (5-40)
[2024-08-01 16:11] LABS: Microalbumin,Random Urine 7.8 mg/L (NO RANGE EST.); Microalbumin:Creatinine Ratio 25.6 mg/g CRE (<30 mg/g CRE)
== END | disposition home or self-care (01) ==
LOC: BIMLAB 13:08
PROVIDERS: PCP Internal Medicine; Visit Provider Internal Medicine
DX: E11.22 Type 2 diabetes mellitus with diabetic chronic kidney disease (principal); E11.69 Type 2 diabetes mellitus with other specified complication; N18.30 Chronic kidney disease, stage 3 unspecified
CPT/HCPCS: 36415; 80053; 80061; 82043; 82570; 83036; 85025

== ENCOUNTER → 2024-09-05 | Outpatient (CLI) | payer MEDICARE, SELFPAY ==
--- NOTE | 2024-09-05 14:50 | ECHOD_ITS ---
Reason For Study: ATRIAL FIBRILLATION Procedure This was a 2D Doppler, Color Flow transthoracic echocardiogram. The study was technically difficult. Contrast injection was performed. Exam performed in department. Left Ventricle Normal LV size. Left ventricular systolic function is normal. The left ventricular ejection fraction is 55 %. No regional wall motion abnormalities noted. Right Ventricle Normal RV size. ICD or pacer leads identified within the right ventricle. Normal systolic function. Mitral Valve Normal mitral valve. Mild (1+) eccentric mitral valve insufficiency. Tricuspid Valve Normal tricuspid valve. Mild (1+) tricuspid valve insufficiency. Pulmonary artery systolic pressure is 40 mmHg. Aortic Valve Trisinus/trileaflet aortic valve. Pulmonic Valve Normal pulmonic valve. Great Vessels Normal aortic root. The pulmonary artery is normal size. Normal inferior vena cava. Pericardium/Pleural No pericardial effusion. Medication 22 gauge I.V. with prn adaptor inserted into left arm. Diluted definity 2ml given slow IV push to enhance endocardial definition. MMode/2D Measurements & Calculations LVIDd: 4.9 cm IVSd: 1.4 cm LVOT diam: 2.2 cm LVIDs: 3.2 cm LVPWd: 1.2 cm LVOT area: 3.8 cm2 RVDd: 4.2 cm FS: 35.9 % asc Aorta Diam: 3.6 cm LAV(MOD-bp): 69.7 ml LVAd ap4: 36.9 cm2 LAV(MOD-bp) Indexed: 33.1 ml/m2 LVLd ap4: 8.3 cm LAV(MOD-sp2): 76.1 ml EDV(MOD-sp4): 130.9 ml LAV(MOD-sp4): 59.6 ml EDV(sp4-el): 139.5 ml LVAs ap4: 25.5 cm2 LVLs ap4: 7.3 cm ESV(MOD-sp4): 71.0 ml ESV(sp4-el): 75.4 ml EF(MOD-sp4): 45.7 % EF(sp4-el): 45.9 % LVAd ap2: 37.6 cm2 SV(MOD-sp4): 59.9 ml SV(MOD-sp2): 60.3 ml LVLd ap2: 8.5 cm SI(MOD-sp4): 28.4 ml/m2 SI(MOD-sp2): 28.6 ml/m2 EDV(MOD-sp2): 134.7 ml EDV(sp2-el): 142.0 ml LVAs ap2: 26.7 cm2 LVLs ap2: 7.6 cm ESV(MOD-sp2): 74.3 ml ESV(sp2-el): 79.8 ml EF(MOD-sp2): 44.8 % SV(sp4-el): 64.0 ml Ao sinus diam: 3.[address] Junction: 2.8 cm LA dimension(2D): 4.7 cm LA A4 area: 21.0 cm2 RA A4 area: 17.4 cm2 TAPSE: 1.8 cm Time Measurements MV dec time: 0.17 sec Doppler Measurements & Calculations MV E max justin: 106.0 cm/sec Lat Peak E' Justin: 7.2 cm/sec Med Peak E' Justin: 6.9 cm/sec E/E' lat: 14.8 E/E' med: 15.4 Ao V2 max: 135.7 cm/sec LV V1 max: 87.3 cm/sec SV(LVOT): 72.8 ml Ao max P.4 mmHg LV V1 max P.0 mmHg Ao V2 mean: 93.9 cm/sec LV V1 mean P.8 mmHg Ao mean P.0 mmHg LV V1 mean: 65.5 cm/sec Ao V2 VTI: 30.0 cm LV V1 VTI: 19.1 cm AV (velocity ratio): 0.63 PRAMOD(I,D): 2.4 cm2 PRAMOD(V,D): 2.5 cm2 PA V2 max: 75.9 cm/sec TR max justin: 301.2 cm/sec TR max P.3 mmHg ECHO/Echo Complete W/ Contrast Interpretation Summary Normal LV size. Left ventricular systolic function is normal. The left ventricular ejection fraction is 55 %. Pulmonary artery systolic pressure is 40 mmHg. Contrast injection was performed. Ordering Physician: Debbie Gray Referring Physician: Emily Roman Performed By: Nely Swan RDCS
== END | disposition home or self-care (01) ==
LOC: CVS 14:49
PROVIDERS: PCP Internal Medicine; Referring Provider Nurse Practitioner Gerontology; Visit Provider Nurse Practitioner Gerontology
DX: I48.0 Paroxysmal atrial fibrillation (principal)
CPT/HCPCS: 93306; Q9957; A4216; C8929

== ENCOUNTER → 2025-04-23 | Outpatient (CLI) | payer MEDICARE, SELFPAY ==
[2025-04-23 16:59] LABS: Hematocrit 39.3 % (40-54); Hemoglobin 12.8 g/dL (13.0-16.5); Immature Granulocytes Count 0.040 X10^3/uL (0.0-0.0); Mean Corp Hgb Conc 32.6 g/dL (32-36); Mean Corpuscular Volume 93.1 fL (80-94); Mean Platelet Vol. 10.5 fl (6.2-12.0); NRBC Flagged by Analyzer 0 % (0-5); Platelet Count 165 K/mm3 (150-450); RBC Distribution Width CV 14.3 % (11.6-14.6); RBC Distribution Width SD 48.7 fl (35.1-43.9); Red Blood Count 4.22 M/mm3 (4.6-6.2); White Blood Count 8.2 K/mm3 (4.4-11.0)
[2025-04-23 17:10] LABS: AST(SGOT) 22 U/L (<=37); Alanine Aminotransfer ALT/SGPT 19 U/L (<=46); Albumin, Serum 3.8 g/dL (3.4-4.8); Alkaline Phosphatase 53 U/L (40-129); Anion Gap 12 (5-15); BUN 52 mg/dL (4-19); BUN/Creat Ratio 25.7 RATIO (10-20); Calcium,Total 9.3 mg/dL (7.6-11.0); Carbon Dioxide 24.3 mmol/L (21.0-32.0); Chloride 107 mmol/L (98-108); Globulin 3.1 g/dL (2.2-4.2); Glucose 142 mg/dL (70-99); Potassium 4.2 mmol/L (3.3-5.1)
== END | disposition home or self-care (01) ==
LOC: BIMLAB 15:30
PROVIDERS: PCP Internal Medicine; Referring Provider Internal Medicine; Visit Provider Internal Medicine
DX: I10 Essential (primary) hypertension (principal); E11.9 Type 2 diabetes mellitus without complications
CPT/HCPCS: 36415; 80053; 83036; 85025

== ENCOUNTER → 2025-05-18 | Outpatient (CLI) | payer MEDICARE, SELFPAY ==
[2025-05-18 16:30] LABS: Anion Gap 10 (5-15); BUN 35 mg/dL (4-19); BUN/Creat Ratio 19.6 RATIO (10-20); Calcium,Total 8.8 mg/dL (7.6-11.0); Carbon Dioxide 25.1 mmol/L (21.0-32.0); Chloride 100 mmol/L (98-108); Glucose 186 mg/dL (70-99); PSA,Total - Annual Screen 6.12 ng/mL (0.02-4.00); Potassium 4.2 mmol/L (3.3-5.1)
== END | disposition home or self-care (01) ==
LOC: BIMLAB 14:18
PROVIDERS: PCP Internal Medicine; Referring Provider Internal Medicine; Visit Provider Internal Medicine
DX: Z12.5 Encounter for screening for malignant neoplasm of prostate (principal); N18.30 Chronic kidney disease, stage 3 unspecified; N40.0 Benign prostatic hyperplasia without lower urinary tract symptoms
CPT/HCPCS: 36415; 80048; 84153; G0103

== ENCOUNTER 2025-06-14 13:57 | Outpatient (CLI) | payer MEDICARE, SELFPAY ==
[2025-06-14 16:22] LABS: Anion Gap 9 (5-15); BUN 25 mg/dL (4-19); BUN/Creat Ratio 16.2 RATIO (10-20); Calcium,Total 9.5 mg/dL (7.6-11.0); Carbon Dioxide 26.4 mmol/L (21.0-32.0); Chloride 105 mmol/L (98-108); Glucose 174 mg/dL (70-99); PSA,Total - Annual Screen 3.16 ng/mL (0.02-4.00); Potassium 4.8 mmol/L (3.3-5.1)
[2025-06-20 11:08] LABS: PSA, Free 0.66 ng/mL; PSA, Free % 20.1 % (.); PSA, Total Ultrasensitive 3.280 ng/mL (0.000-4.000)
== END 2025-06-14 23:59 | disposition home or self-care (01) ==
LOC: LAB 13:57
PROVIDERS: PCP Internal Medicine; Referring Provider Urology; Visit Provider Urology
DX: R97.20 Elevated prostate specific antigen [PSA] (principal); Z12.5 Encounter for screening for malignant neoplasm of prostate
CPT/HCPCS: 36415; 80048; 84153; 84154; G0103

== ENCOUNTER → 2025-08-13 | Outpatient (CLI) | payer MEDICARE, SELFPAY ==
[2025-08-13 14:54] LABS: Creatinine, Urine (random) 57.90 mg/dL (39.00-259.00)
[2025-08-13 14:56] LABS: Anion Gap 9 (5-15); BUN 32 mg/dL (4-19); BUN/Creat Ratio 19.2 RATIO (10-20); Calcium,Total 9.6 mg/dL (7.6-11.0); Carbon Dioxide 23.9 mmol/L (21.0-32.0); Chloride 106 mmol/L (98-108); Glucose 172 mg/dL (70-99); Potassium 4.7 mmol/L (3.3-5.1)
[2025-08-13 15:55] LABS: Microalbumin,Random Urine 22.4 mg/L (<20 mg/L)
== END | disposition home or self-care (01) ==
LOC: LAB 13:47
PROVIDERS: PCP Internal Medicine; Referring Provider Internal Medicine; Visit Provider Internal Medicine
DX: E11.69 Type 2 diabetes mellitus with other specified complication (principal)
CPT/HCPCS: 36415; 80048; 82043; 82570